=== PATIENT | female | born 1945 | race Caucasian/White ===

== ENCOUNTER 2018-12-04 09:22 | Day surgery (SDC) | payer OTHER, MEDICARE ==
[2018-12-04 09:41] VITALS: BMI 29.0
[2018-12-04 14:50] VITALS: BP 122/64; PULSE 59; TEMP 97.5
--- NOTE | 2018-12-05 15:43 | PATH ---
Surgical Pathology Report Patient Name: ANGEL JAUREGUI [facility]. Rec. #: [id number] /Age/Gender: 1945 (Age: 73) / F Account: [id number] Location: [facility]-ENDOSCOPY Taken: 12/04/2018 Received: 12/04/2018 Reported: 12/05/2018 Physicians: Ramon Hernandez D.O. Specimen(s) Received A: SIGMOID POLYP BIOPSY B: RECTOSIGMOID POLYP Clinical History Positive cologuard Postoperative diagnosis: Colon polyps and hemorrhoids Final Diagnosis A. SIGMOID POLYP, POLYPECTOMY: TUBULAR ADENOMA. B. RECTOSIGMOID POLYP, POLYPECTOMY: TUBULAR ADENOMA. Electronically Signed Valeriano Rowan M.D. Gross Description A. Received in formalin, labeled "rectosigmoid polyp" is a field, irregular portion of soft tissue measuring 0.2 cm. in greatest dimension. The specimen is submitted in toto in one cassette. B. Received in formalin, labeled "sigmoid polyp biopsy" are 2 field, irregular portions of soft tissue measuring 0.3 and 0.4 cm. in greatest dimension. The specimens are submitted in toto in one cassette. 12/04/2018 saudi12/04/2018
== END 2018-12-04 11:30 | disposition home or self-care (01) ==
LOC: JASU-ENDO 09:22
PROVIDERS: ATTEND Internal Medicine Gastroenterology
PROC: 0DBN8ZX Excision of Sigmoid Colon, Via Natural or Artificial Opening Endoscopic, Diagnostic (ICD-10-PCS; 2018-12-04)
PROC: 0DBN8ZX Excision of Sigmoid Colon, Via Natural or Artificial Opening Endoscopic, Diagnostic (ICD-10-PCS; principal; 2018-12-04 10:00)
DX: K92.1 Melena (principal); D12.7 Benign neoplasm of rectosigmoid junction; D12.5 Benign neoplasm of sigmoid colon; K63.89 Other specified diseases of intestine
CPT/HCPCS: 88305-TC